=== PATIENT | female | born 1990 | race Caucasian/White ===

== ENCOUNTER 2017-01-19 21:58 | Inpatient (IN) | payer OTHER ==
[2017-01-19] MEDS ORDERED: Oxytocin/Lactated Ringers 10 UNIT/1,000 ML BAG IV SCH ×2 (23:45)
[2017-01-19] MEDS ORDERED: Sodium Chloride 0.9% 10 ML Syringe FLUSH PRN (23:46)
[2017-01-19] MEDS ORDERED: Nalbuphine 20 MG/1 ML Amp IVPUSH PRN (23:46)
[2017-01-19] MEDS ORDERED: Lidocaine 1% 50 ML MDV INJECT ONE (23:46)
[2017-01-20] MEDS: Lactated Ringers 1,000 ML IV SCH ×6 (02:27→19:15)
[2017-01-20] MEDS ORDERED: Flu Vaccine 2016-17(36Mos+)/PF 60 MCG/0.5 ML Syringe IM ONE (08:32)
[2017-01-20] MEDS ORDERED: Pneumococcal Polyvalent-23 Vaccine 0.5 ML SDV IM ONE (08:32)
[2017-01-20] MEDS ORDERED: diphenhydrAMINE 50 MG/ML SDV IVPUSH PRN (09:32)
[2017-01-20] MEDS ORDERED: fentaNYL 100 MCG/2 ML SDV EPIDUR PRN (09:32)
[2017-01-20] MEDS ORDERED: ePHEDrine 50 MG/ML SDV IVPUSH PRN (09:32)
[2017-01-20] MEDS: Bupivacaine/fentaNYL/NS 100 ML Bag EPIDUR SCH ×2 (10:11→18:41)
--- NOTE | 2017-01-20 10:24 | PCM.PREANE ---
Preanesthetic Assessment - Anesthesia/Transfusion/Family Hx Anesthesia History: Prior Anesthesia Without Reaction Family History of Anesthesia Reaction: No Transfusion History: No Prior Transfusion(s) - Review of Systems General: No Symptoms Pulmonary: No Symptoms Cardiovascular: No Symptoms 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: No symptoms Neurological: No Symptoms Other: Reports: None - Physical Assessment Pulse: 90 O2 Sat by Pulse Oximetry: 96 Respiratory Rate: 18 Blood Pressure: 140/97 Temperature: 37.0 C Vital Signs: Last Vital Signs Temp 37.0 C 01/19/17 23:46 Pulse 90 01/19/17 23:46 Resp 18 01/19/17 23:46 BP 140/97 H 01/19/17 23:46 Pulse Ox 96 01/19/17 23:46 Height: 1.63 m Weight: 80.739 kg ASA Class: 2 Mental Status: Alert & Oriented x3 Airway Class: Mallampati = 1 Dentition: Reports: Normal Dentition Thyro-Mental Finger Breadths: 3 Mouth Opening Finger Breadths: 3 ROM/Head Extension: Full Lungs: Clear to auscultation, Normal respiratory effort Cardiovascular: Regular Rate, Regular Rhythm - Lab Values: Laboratory Last Values WBC 12.18 K/mm3 (3.98-10.04) H 01/20/17 00:10 RBC 4.12 M/mm3 (3.98-5.22) 01/20/17 00:10 Hgb 11.8 gm/L (11.2-15.7) 01/20/17 00:10 Hct 34.6 % (34.1-44.9) 01/20/17 00:10 MCV 84.0 fl (79.4-94.8) 01/20/17 00:10 MCH 28.6 pg (25.6-32.2) 01/20/17 00:10 MCHC 34.1 g/dl (32.2-35.5) 01/20/17 00:10 RDW Std Deviation 44.0 fL (36.4-46.3) 01/20/17 00:10 Plt Count 257 K/mm3 (182-369) 01/20/17 00:10 MPV 10.0 fl (9.4-12.3) 01/20/17 00:10 Membrane Rupture Positive H 01/19/17 22:40 Blood Type A NEGATIVE 01/20/17 00:10 Gel Antibody Screen Positive 01/20/17 00:10 - Allergies Allergies/Adverse Reactions: Allergies Allergy/AdvReac Type Severity Reaction Status Date / Time No Known Allergies Allergy Verified 10/04/16 17:21 - Anesthesia Plan Pre-Op Medication Ordered: None - Acknowledgements Anesthesia Type Planned: Epidural Pt an Appropriate Candidate for the Planned Anesthesia: Yes Alternatives and Risks of Anesthesia Discussed w Pt/Guardian: Yes Pt/Guardian Understands and Agrees with Anesthesia Plan: Yes PreAnesthesia Questionnaire Respiratory History: Reports: Asthma Other Respiratory History: EXERCISE INDUCED, does not use inhaler, pt is ex smoker 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: Reports: GERD 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: Psychiatric History: Reports: Depression, Suicide attempt Other Psychiatric History: at age 16 pt states she tried to cut or scrape wrists - SUBSTANCE USE Smoking Status *Q: Former Smoker Tobacco Use Within Last Twelve Months: Cigarettes Second Hand Smoke Exposure: No Days Per Week of Alcohol Use: 1 Number of Drinks Per Day: 3 Total Drinks Per Week: 3 Recreational Drug Use History: Yes Recreational Drug Type: Reports: Ecstasy, Other (see below) - CURRENT (IN HOUSE) MEDS Current Meds: Current Medications Diphenhydramine HCl (Benadryl) 25 mg IVPUSH Q6H PRN PRN Reason: Itching Ephedrine Sulfate (Ephedrine Sulfate) 5 mg IVPUSH ASDIRECTED PRN PRN Reason: HYPOTENTSION Fentanyl (Sublimaze) 100 mcg EPIDUR Q3H PRN PRN Reason: PAIN Last Admin: 01/20/17 10:10 Dose: 100 mcg Fentanyl/Bupivacaine HCl (Fentanyl/Bupivacaine/Ns 2 Mcg-0.125% 100 Ml) 100 ml EPIDUR ASDIRECTED TYRONE Last Admin: 01/20/17 10:11 Dose: 100 ml Lactated Ringer's (Ringers, Lactated) 1,000 mls @ 100 mls/hr IV ASDIRECTED TYRONE Last Admin: 01/20/17 09:56 Dose: 100 mls/hr Oxytocin/Lactated Ringer's (Pitocin In Lr 10 Units/1,000 Ml) 10 unit in 1,000 mls @ 500 mls/hr IV ASDIRECTED TYRONE Oxytocin/Lactated Ringer's (Pitocin In Lr 10 Units/1,000 Ml) 10 unit in 1,000 mls @ 12 mls/hr IV TITRATE TYRONE; 2 MUNITS/MIN PRN Reason: Protocol Nalbuphine HCl (Nubain) 10 mg IVPUSH Q2H PRN PRN Reason: Pain (moderate 4-6) Sodium Chloride (Saline Flush) 10 ml FLUSH ASDIRECTED PRN PRN Reason: Keep Vein Open Discontinued Medications Influenza Virus Vaccine (Fluzone/Fluarix Vaccine) 60 mcg IM .ONCE ONE Stop: 01/20/17 08:33 Lidocaine HCl (Xylocaine 1%) 50 ml INJECT ONETIME ONE Stop: 01/19/17 23:47 Pneumococcal Polyvalent Vaccine (Pneumovax 23) 0.5 ml IM .ONCE ONE Stop: 01/20/17 08:33 Preanesthetic Assessment - PHYSICAL ASSESSMENT O2 Sat by Pulse Oximetry: 96 RR: 18 Vital Signs: Last Vital Signs Temp 37.0 C 01/19/17 23:46 Pulse 90 01/19/17 23:46 Resp 18 01/19/17 23:46 BP 140/97 H 01/19/17 23:46 Pulse Ox 96 01/19/17 23:46 Height: 1.63 m Weight: 80.739 kg - LAB Values: Laboratory Last Values WBC 12.18 K/mm3 (3.98-10.04) H 01/20/17 00:10 RBC 4.12 M/mm3 (3.98-5.22) 01/20/17 00:10 Hgb 11.8 gm/L (11.2-15.7) 01/20/17 00:10 Hct 34.6 % (34.1-44.9) 01/20/17 00:10 MCV 84.0 fl (79.4-94.8) 01/20/17 00:10 MCH 28.6 pg (25.6-32.2) 01/20/17 00:10 MCHC 34.1 g/dl (32.2-35.5) 01/20/17 00:10 RDW Std Deviation 44.0 fL (36.4-46.3) 01/20/17 00:10 Plt Count 257 K/mm3 (182-369) 01/20/17 00:10 MPV 10.0 fl (9.4-12.3) 01/20/17 00:10 Membrane Rupture Positive H 03/29/17 22:40 Blood Type A NEGATIVE 01/20/17 00:10 Gel Antibody Screen Positive 01/20/17 00:10 - ALLERGIES Allergies/Adverse Reactions: Allergies Allergy/AdvReac Type Severity Reaction Status Date / Time No Known Allergies Allergy Verified 10/04/16 17:21
[2017-01-20] MEDS ORDERED: Clindamycin Phosphate 600 MG in Sodium Chloride 0.9% 100 ML IV ONE (13:59)
[2017-01-20] MEDS: Acetaminophen 325 MG Tab PO PRN ×2 (15:20→20:56)
--- NOTE | 2017-01-20 22:20 | PCM.LDHP ---
L&D History of Present Illness - General Date of Service: 01/20/17 Admit Problem/Dx: Patient Status Order with Admit Dx/Problem 01/19/17 23:46 Patient Status [ADT] Routine 01/20/17 00:33 Patient Status [ADT] Routine Admission Diagnosis/Problem Admission Diagnosis/Problem Normal labor Source of Information: Patient History Limitations: Reports: No limitations - History of Present Illness Pain Score: 10 Improves with: Reports: None Worsens with: Reports: None Associated Symptoms: Reports: N - Related Data Allergies/Adverse Reactions: Allergies Allergy/AdvReac Type Severity Reaction Status Date / Time No Known Allergies Allergy Verified 10/04/16 17:21 Past Medical History Respiratory History: Reports: Asthma Other Respiratory History: EXERCISE INDUCED, does not use inhaler, pt is ex smoker 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: Reports: 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: Psychiatric History: Reports: Depression, Suicide attempt Other Psychiatric History: at age 16 pt states she tried to cut or scrape wrists Social & Family History - Family History Family Medical History: Noncontributory - Tobacco Use Smoking Status *Q: Former Smoker Years of Tobacco use: 10 Packs/Tins Daily: 5 Used Tobacco, but Quit: Yes Month Tobacco Last Used: 05/2016 Second Hand Smoke Exposure: No - Caffeine Use Caffeine Use: Reports: None - Alcohol Use Days Per Week of Alcohol Use: 1 Number of Drinks Per Day: 3 Total Drinks Per Week: 3 - Recreational Drug Use Recreational Drug Use: Yes Drug Use in Last 12 Months: No Recreational Drug Type: Reports: Ecstasy, Other (see below) Other Recreational Drug Type: states she did some drugs when she was 16, states she has bees to therepy H&P Review of Systems - Review of Systems: Review Of Systems: See Below General: Reports: no symptoms HEENT: Reports: no symptoms Pulmonary: Reports: No Symptoms Cardiovascular: Reports: no symptoms 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: Reports: No symptoms Genitourinary: Reports: no symptoms Musculoskeletal: Reports: no symptoms Skin: Reports: no symptoms Psychiatric: Reports: no symptoms Neurological: Reports: No Symptoms Hematologic/Lymphatic: Reports: no symptoms Immunologic: Reports: no symptoms L&D Exam - Exam Exam: See Below - Vital Signs Vital Signs: Last Vital Signs Temp 38.1 C 01/20/17 20:56 Pulse 90 01/20/17 10:24 Resp 18 01/20/17 10:24 BP 140/97 H 01/20/17 10:24 Pulse Ox 96 01/20/17 10:24 Weight: 80.739 kg - OB Specific Contraction Intensity: Mild to Moderate movement: active heart tones: present Heart Rate (FHR) Variability: Moderate (6-25 bmp) Presentation: Vertex - Boudreaux Score Boudreaux Score Cervix Position: Midposition Boudreaux Score Consistency: Soft Boudreaux Score Effacement: 31-50% Boudreaux Score Dilation: 1-2 cm Boudreaux Score 's Station: -2 Boudreaux Score Total: 6 - Exam General: alert HEENT: Conjunctiva clear Neck: supple Lungs: Clear to auscultation Cardiovascular: regular rate Abdomen: soft Genitourinary: Normal external exam Back Exam: normal inspection, full range of motion Extremities: normal inspection Skin: warm, dry Neurological: cranial nerves intact Psychiatric: alert, normal affect, normal mood - Patient Data Lab Results last 24 hrs: Laboratory Results - last 24 hr 01/19/17 01/20/17 01/20/17 Range/Units 22:40 00:10 00:10 WBC 12.18 H (3.98-10.04) K/mm3 RBC 4.12 (3.98-5.22) M/mm3 Hgb 11.8 (11.2-15.7) gm/L Hct 34.6 (34.1-44.9) % MCV 84.0 (79.4-94.8) fl MCH 28.6 (25.6-32.2) pg MCHC 34.1 (32.2-35.5) g/dl RDW Std Deviation 44.0 (36.4-46.3) fL Plt Count 257 (182-369) K/mm3 MPV 10.0 (9.4-12.3) fl Membrane Rupture Positive H Blood Type A NEGATIVE Gel Antibody Screen Positive Result Diagrams: 01/20/17 00:10 Problem List Initiated/Reviewed/Updated: Yes Orders Last 24hrs: Active Orders 24 hr Category Date Time Status Patient Status [ADT] Routine ADT 01/20/17 00:33 Active Activity as Tolerated [RC] PFP Care 01/19/17 23:46 Active Communication Order [RC] ASDIRECTED Care 01/19/17 23:46 Active Communication Order [RC] ASDIRECTED Care 01/20/17 09:28 Active Communication Order [RC] ASDIRECTED Care 01/20/17 09:32 Active Cooling Warming Measures [RC] ASDIRECTED Care 01/20/17 09:32 Active Notify Provider [RC] ASDIRECTED Care 01/20/17 09:32 Active Notify Provider [RC] PFP Care 01/19/17 23:46 Active Notify Provider [RC] PRN Care 01/19/17 23:46 Active Oxygen Therapy [RC] ASDIRECTED Care 01/20/17 09:32 Active Peripheral IV Care [RC] . DIRECTED Care 01/19/17 23:46 Active Pulse Oximetry [RC] ASDIRECTED Care 01/20/17 09:32 Active Verify Patient Consent Obtain [RC] ASDIRECTED Care 01/20/17 09:32 Active Vital Signs [RC] Care 01/20/17 09:32 Active Vital Signs [RC] PER UNIT ROUTINE Care 01/19/17 23:46 Active Regular Diet [DIET] Diet 01/20/17 Breakfast Active ANTIBODY IDENTIFICATION [BBK] Stat Lab 01/20/17 00:10 Results TYPE AND SCREEN [BBK] Stat Lab 01/19/17 23:46 Results Acetaminophen [Tylenol] Med 01/20/17 15:14 Active 650 mg PO Q4H PRN Bupivacaine/fentaNYL/NS [fentaNYL/Bupivacaine/NS 2 MCG- Med 01/20/17 09:45 Active 0.125% 100 ML] 100 ml EPIDUR ASDIRECTED Lactated Ringers [Ringers, Lactated] 1,000 ml Med 01/19/17 23:45 Active IV ASDIRECTED Nalbuphine [Nubain] Med 01/19/17 23:46 Active 10 mg IVPUSH Q2H PRN Oxytocin/Lactated Ringers [Pitocin in LR 10 Units/1,000 Med 01/19/17 23:45 Active ML] 10 unit in 1,000 ml IV ASDIRECTED Oxytocin/Lactated Ringers [Pitocin in LR 10 Units/1,000 Med 01/19/17 23:45 Active ML] 10 unit in 1,000 ml IV TITRATE Sodium Chloride 0.9% [Saline Flush] Med 01/19/17 23:46 Active 10 ml FLUSH ASDIRECTED PRN diphenhydrAMINE [Benadryl] Med 01/20/17 09:32 Active 25 mg IVPUSH Q6H PRN ePHEDrine [ePHEDrine Sulfate] Med 01/20/17 09:32 Active 5 mg IVPUSH ASDIRECTED PRN fentaNYL [Sublimaze] Med 01/20/17 09:32 Active 100 mcg EPIDUR Q3H PRN Electronic Heart Tones Ext w TOCO [WOMSER] Oth 01/19/17 23:46 Ordered Routine Electronic Heart Tones Internal [WOMSER] Per Unit Oth 01/19/17 23:46 Ordered Routine Peripheral IV Insertion Adult [OM.PC] Routine Oth 01/19/17 23:46 Ordered Resuscitation Status Routine Resus Stat 01/19/17 23:46 Ordered Medication Orders Acetaminophen (Tylenol) 650 mg PO Q4H PRN PRN Reason: temp, pain Last Admin: 01/20/17 20:56 Dose: 650 mg Admin: 01/20/17 15:20 Dose: 650 mg Diphenhydramine HCl (Benadryl) 25 mg IVPUSH Q6H PRN PRN Reason: Itching Ephedrine Sulfate (Ephedrine Sulfate) 5 mg IVPUSH ASDIRECTED PRN PRN Reason: HYPOTENTSION Fentanyl (Sublimaze) 100 mcg EPIDUR Q3H PRN PRN Reason: PAIN Last Admin: 01/20/17 10:10 Dose: 100 mcg Fentanyl/Bupivacaine HCl (Fentanyl/Bupivacaine/Ns 2 Mcg-0.125% 100 Ml) 100 ml EPIDUR ASDIRECTED [facility] Last Admin: 01/20/17 18:41 Dose: 100 ml Admin: 01/20/17 10:11 Dose: 100 ml Lactated Ringer's (Ringers, Lactated) 1,000 mls @ 100 mls/hr IV ASDIRECTED [facility] Last Admin: 01/20/17 19:15 Dose: 100 mls/hr Infusion: 01/20/17 19:15 Dose: 100 mls/hr Admin: 01/20/17 13:46 Dose: 100 mls/hr Infusion: 01/20/17 13:46 Dose: 100 mls/hr Admin: 01/20/17 10:55 Dose: 100 mls/hr Infusion: 01/20/17 10:55 Dose: 100 mls/hr Admin: 01/20/17 09:56 Dose: 100 mls/hr Infusion: 01/20/17 09:56 Dose: 100 mls/hr Admin: 01/20/17 02:28 Dose: 100 mls/hr Infusion: 01/20/17 02:28 Dose: 100 mls/hr Admin: 01/20/17 02:27 Dose: 100 mls/hr Oxytocin/Lactated Ringer's (Pitocin In Lr 10 Units/1,000 Ml) 10 unit in 1,000 mls @ 500 mls/hr IV ASDIRECTED TYRONE Oxytocin/Lactated Ringer's (Pitocin In Lr 10 Units/1,000 Ml) 10 unit in 1,000 mls @ 12 mls/hr IV TITRATE TYRONE; 2 MUNITS/MIN PRN Reason: Protocol Last Titration: 01/20/17 13:32 Dose: 6 munits/min, 36 mls/hr Titration: 01/20/17 12:28 Dose: 5 munits/min, 30 mls/hr Titration: 01/20/17 11:29 Dose: 4 munits/min, 24 mls/hr Titration: 01/20/17 10:56 Dose: 3 munits/min, 18 mls/hr Admin: 01/20/17 10:33 Dose: 2 munits/min, 12 mls/hr Nalbuphine HCl (Nubain) 10 mg IVPUSH Q2H PRN PRN Reason: Pain (moderate 4-6) Sodium Chloride (Saline Flush) 10 ml FLUSH ASDIRECTED PRN PRN Reason: Keep Vein Open Assessment/Plan Comment:: SROM clear fluid. Pitocin if needed. Anticipate .
[2017-01-20] MEDS ORDERED: ePHEDrine 50 MG/ML SDV ONE (22:22)
[2017-01-20] MEDS ORDERED: Bupivacaine 0.25% 10 ML SDV ONE (22:22)
--- NOTE | 2017-01-20 22:22 | PCM.PNLD ---
Labor Progress Note - VS & Meds Vital Signs: Last Vital Signs Temp 38.1 C 01/20/17 20:56 Pulse 90 01/20/17 10:24 Resp 18 01/20/17 10:24 BP 140/97 H 01/20/17 10:24 Pulse Ox 96 01/20/17 10:24 Active Medications: Current Medications Acetaminophen (Tylenol) 650 mg PO Q4H PRN PRN Reason: temp, pain Last Admin: 01/20/17 20:56 Dose: 650 mg Diphenhydramine HCl (Benadryl) 25 mg IVPUSH Q6H PRN PRN Reason: Itching Ephedrine Sulfate (Ephedrine Sulfate) 5 mg IVPUSH ASDIRECTED PRN PRN Reason: HYPOTENTSION Fentanyl (Sublimaze) 100 mcg EPIDUR Q3H PRN PRN Reason: PAIN Last Admin: 01/20/17 10:10 Dose: 100 mcg Fentanyl/Bupivacaine HCl (Fentanyl/Bupivacaine/Ns 2 Mcg-0.125% 100 Ml) 100 ml EPIDUR ASDIRECTED TYRONE Last Admin: 01/20/17 18:41 Dose: 100 ml Lactated Ringer's (Ringers, Lactated) 1,000 mls @ 100 mls/hr IV ASDIRECTED TYRONE Last Admin: 01/20/17 19:15 Dose: 100 mls/hr Oxytocin/Lactated Ringer's (Pitocin In Lr 10 Units/1,000 Ml) 10 unit in 1,000 mls @ 500 mls/hr IV ASDIRECTED TYRONE Oxytocin/Lactated Ringer's (Pitocin In Lr 10 Units/1,000 Ml) 10 unit in 1,000 mls @ 12 mls/hr IV TITRATE TYRONE; 2 MUNITS/MIN PRN Reason: Protocol Last Titration: 01/20/17 13:32 Dose: 6 munits/min, 36 mls/hr Nalbuphine HCl (Nubain) 10 mg IVPUSH Q2H PRN PRN Reason: Pain (moderate 4-6) Sodium Chloride (Saline Flush) 10 ml FLUSH ASDIRECTED PRN PRN Reason: Keep Vein Open Discontinued Medications Gentamicin Sulfate 120 mg/ (Sodium Chloride) 103 mls @ 200 mls/hr IV ONETIME ONE Stop: 01/20/17 14:28 Last Admin: 01/20/17 15:05 Dose: 200 mls/hr Clindamycin Phosphate 600 mg/ (Sodium Chloride) 104 mls @ 100 mls/hr IV ONETIME ONE Stop: 01/20/17 15:01 Last Admin: 01/20/17 14:12 Dose: 100 mls/hr Influenza Virus Vaccine (Fluzone/Fluarix Vaccine) 60 mcg IM .ONCE ONE Stop: 01/20/17 08:33 Lidocaine HCl (Xylocaine 1%) 50 ml INJECT ONETIME ONE Stop: 01/19/17 23:47 Pneumococcal Polyvalent Vaccine (Pneumovax 23) 0.5 ml IM .ONCE ONE Stop: 01/20/17 08:33 - Uterine Contractions Contraction Intensity: Mild to Moderate Uterine Resting Tone: Hard - Monitoring Heart Rate (FHR) Variability: Moderate (6-25 bmp) Accelerations: Present, 15x15 - Vaginal Exam Station: -3 - Labor Progress (Free Text) Labor Progress: Good progress. Anticipate .
[2017-01-20] MEDS ORDERED: Acetaminophen 325 MG Tab PO PRN (23:31)
[2017-01-20] MEDS ORDERED: Lanolin 100% Cream 7 GM Tube TOP PRN (23:31)
[2017-01-20] MEDS ORDERED: Benzocaine/Menthol 20%-0.5% Spray 56 GM Canister TOP PRN (23:31)
[2017-01-20] MEDS ORDERED: Docusate Sodium 100 MG Cap PO PRN (23:31)
[2017-01-20] MEDS ORDERED: Witch Hazel Medicated Pads 100/Jar TOP PRN (23:31)
[2017-01-20] MEDS: Ibuprofen 600 MG Tab PO PRN (23:50)
--- NOTE | 2017-01-21 07:47 | PCM48HPAN ---
Post Anesthesia Note - EVALUATION WITHIN 48HRS OF ANESTHETIC Vital Signs in Normal Range: Yes Patient Participated in Evaluation: Yes Respiratory Function Stable: Yes Airway Patent: Yes Cardiovascular Function Stable: Yes Hydration Status Stable: Yes Pain Control Satisfactory: Yes Nausea and Vomiting Control Satisfactory: Yes Mental Status Recovered: Yes
[2017-01-21] MEDS: Ibuprofen 600 MG Tab PO PRN ×2 (08:52→16:36)
--- NOTE | 2017-01-21 10:10 | PCM.PNPP ---
- General Info Date of Service: 01/21/17 Subjective Update: S/P . Doing great. No issues. Minimal pain. Nursing well. Functional Status: Reports: pain controlled - Review of Systems General: Reports: No Symptoms HEENT: Reports: no symptoms Pulmonary: Reports: no symptoms Cardiovascular: Reports: No Symptoms 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: Reports: No symptoms Genitourinary: Reports: no symptoms Musculoskeletal: Reports: no symptoms Skin: Reports: no symptoms Neurological: Reports: No Symptoms Psychiatric: Reports: no symptoms - General Info Date of Service: 01/21/17 - Patient Data Vital Signs - most recent: Last Vital Signs Temp 36.1 C 01/21/17 04:15 Pulse 79 01/21/17 04:15 Resp 16 01/21/17 04:15 BP 114/78 01/21/17 04:15 Pulse Ox 97 01/21/17 04:15 Weight - most recent: 80.739 kg I&O - last 24 hours: Intake & Output 01/20/17 01/21/17 01/21/17 22:59 06:59 14:59 Output Total 300 Balance -300 Lab Results - last 24 hrs: Laboratory Results - last 24 hr 01/21/17 Range/Units 07:28 Blood Type A NEGATIVE Gel Antibody Screen Positive Screen 0 ros/5 flds - neg RhIG Candidate? Yes Rhogam Indicated Yes, baby rh pos H Med Orders - Current: Current Medications Acetaminophen (Tylenol) 650 mg PO Q4H PRN PRN Reason: mild pain or fever Benzocaine/Menthol (Dermoplast Pain Relief Peak) 0 gm TOP ASDIRECTED PRN PRN Reason: Perineal Comfort Measure Last Admin: 01/21/17 00:48 Dose: 1 can Docusate Sodium (Colace) 100 mg PO BID PRN PRN Reason: Constipation Emollient Ointment (Lansinoh Hpa) 0 gm TOP ASDIRECTED PRN PRN Reason: Sore Nipples Ibuprofen (Motrin) 600 mg PO Q6H PRN PRN Reason: Mild pain or fever Last Admin: 01/21/17 08:52 Dose: 600 mg Witch Pamela (Tucks) 1 pad TOP ASDIRECTED PRN PRN Reason: Hemorrhoid pain Last Admin: 01/21/17 00:48 Dose: 1 tub Discontinued Medications Acetaminophen (Tylenol) 650 mg PO Q4H PRN PRN Reason: temp, pain Last Admin: 01/20/17 20:56 Dose: 650 mg Diphenhydramine HCl (Benadryl) 25 mg IVPUSH Q6H PRN PRN Reason: Itching Ephedrine Sulfate (Ephedrine Sulfate) 5 mg IVPUSH ASDIRECTED PRN PRN Reason: HYPOTENTSION Fentanyl (Sublimaze) 100 mcg EPIDUR Q3H PRN PRN Reason: PAIN Last Admin: 01/20/17 10:10 Dose: 100 mcg Fentanyl/Bupivacaine HCl (Fentanyl/Bupivacaine/Ns 2 Mcg-0.125% 100 Ml) 100 ml EPIDUR ASDIRECTED TYRONE Last Admin: 01/20/17 18:41 Dose: 100 ml Lactated Ringer's (Ringers, Lactated) 1,000 mls @ 100 mls/hr IV ASDIRECTED TYRONE Last Admin: 01/20/17 19:15 Dose: 100 mls/hr Oxytocin/Lactated Ringer's (Pitocin In Lr 10 Units/1,000 Ml) 10 unit in 1,000 mls @ 500 mls/hr IV ASDIRECTED TYRONE Oxytocin/Lactated Ringer's (Pitocin In Lr 10 Units/1,000 Ml) 10 unit in 1,000 mls @ 12 mls/hr IV TITRATE TYRONE; 2 MUNITS/MIN PRN Reason: Protocol Last Titration: 01/20/17 13:32 Dose: 6 munits/min, 36 mls/hr Gentamicin Sulfate 120 mg/ (Sodium Chloride) 103 mls @ 200 mls/hr IV ONETIME ONE Stop: 01/20/17 14:28 Last Admin: 01/20/17 15:05 Dose: 200 mls/hr Clindamycin Phosphate 600 mg/ (Sodium Chloride) 104 mls @ 100 mls/hr IV ONETIME ONE Stop: 01/20/17 15:01 Last Admin: 01/20/17 14:12 Dose: 100 mls/hr Influenza Virus Vaccine (Fluzone/Fluarix Vaccine) 60 mcg IM .ONCE ONE Stop: 01/20/17 08:33 Last Admin: 01/21/17 07:35 Dose: Not Given Lidocaine HCl (Xylocaine 1%) 50 ml INJECT ONETIME ONE Stop: 01/19/17 23:47 Last Admin: 01/21/17 02:01 Dose: Not Given Nalbuphine HCl (Nubain) 10 mg IVPUSH Q2H PRN PRN Reason: Pain (moderate 4-6) Pneumococcal Polyvalent Vaccine (Pneumovax 23) 0.5 ml IM .ONCE ONE Stop: 01/20/17 08:33 Last Admin: 01/21/17 07:36 Dose: Not Given Sodium Chloride (Saline Flush) 10 ml FLUSH ASDIRECTED PRN PRN Reason: Keep Vein Open - Infant Interaction Infant Disposition, : at Bedside Support Person: Significant Other - Recovery Exam Fundal Tone: Firm Fundal Level: At Umbilicus Fundal Placement: Midline Lochia Amount: Small Lochia Color: Rubra/Red Perineum Description: Other (see below) Other Perinuem Description: 2nd degree w/ repair, using tucks and dermoplast Episiotomy/Laceration: Approximated Bladder Status: Voiding Urinary Elimination: Voided - Exam General: alert, oriented HEENT: Pupils equal Neck: supple Lungs: Clear to auscultation, Normal respiratory effort Cardiovascular: Regular Rate, Regular Rhythm Abdomen: bowel sounds present, soft, no tenderness, no distension Extremities: no edema Skin: warm, dry, intact Neurological: no new focal deficit Psy/Mental Status: alert, normal affect, normal mood - Problem List Review Problem List Initiated/Reviewed/Updated: Yes - My Orders Last 24 Hours: My Active Orders 01/20/17 09:28 Communication Order [RC] ASDIRECTED 01/20/17 23:31 Activity as Tolerated [RC] PER UNIT ROUTINE Vital Signs [RC] 04,12,20 Acetaminophen [Tylenol] 650 mg PO Q4H PRN Benzocaine/Menthol [Dermoplast Pain Relief Peak] See Dose Instructions TOP ASDIRECTED PRN Docusate Sodium [Colace] 100 mg PO BID PRN Ibuprofen [Motrin] 600 mg PO Q6H PRN Lanolin [Lansinoh HPA] See Dose Instructions TOP ASDIRECTED PRN Witch Pamela [Tucks] 1 pad TOP ASDIRECTED PRN Assess Lochia [WOMSER] Per Unit Routine Assess Uterine Involution [WOMSER] Per Unit Routine Breast Pump [WOMSER] Per Unit Routine Heat Therapy [OM.PC] PRN Medication Administration Instruction [OM.PC] Routine Perineal Care [OM.PC] Per Unit Routine Sitz Bath [OM.PC] Per Unit Routine 01/21/17 08:09 RH IMMUNE GLOBULIN [BBK] Routine 01/21/17 23:31 Heat Therapy [OM.PC] PRN - Assessment Assessment:: PPD1 Doing great - Plan Plan:: Routine cares HOme tomorrow
--- NOTE | 2017-01-22 06:55 | PCM.DCSUM1 ---
Discharge Summary - Hospital Course Brief History: Admitted with SROM, Augmented, . - Discharge Data Discharge Date: 01/22/17 Discharge Disposition: Home, Self-Care 01 Condition: Good - Patient Summary/Data Hospital Course: Unremarkable labor, delivery and course. - Patient Instructions Diet: Heart Healthy Diet Activity: No Strenuous Activities Driving: May Drive Today Showering/Bathing: May Shower Notify Provider of: Fever, Increased Pain, Swelling and Redness, Drainage, Nausea and/or Vomiting - Discharge Plan Patient Handouts: Smoking Cessation, Tips for Success, With-ey-Ilbh, Smoking Hazards Referrals: Elissa Jimenez MD [Primary Care Provider] - - Discharge Summary/Plan Comment DC Time >30 min.: No - Patient Data Vitals - Most Recent: Last Vital Signs Temp 36.7 C 01/22/17 03:33 Pulse 65 01/22/17 03:33 Resp 16 01/22/17 03:33 BP 129/98 H 01/22/17 03:33 Pulse Ox 99 01/22/17 03:33 Weight - Most Recent: 80.739 kg I&O - Last 24 hours: Intake & Output 01/21/17 01/21/17 01/22/17 14:59 22:59 06:59 Intake Total 2 Balance 2 Lab Results - Last 24 hrs: Laboratory Results - last 24 hr 01/21/17 Range/Units 07:28 Blood Type A NEGATIVE Gel Antibody Screen Positive Screen 0 ros/5 flds - neg RhIG Candidate? Yes Rhogam Indicated Yes, baby rh pos H Med Orders - Current: Current Medications Acetaminophen (Tylenol) 650 mg PO Q4H PRN PRN Reason: mild pain or fever Last Admin: 01/21/17 11:29 Dose: 650 mg Benzocaine/Menthol (Dermoplast Pain Relief [place]) 0 gm TOP ASDIRECTED PRN PRN Reason: Perineal Comfort Measure Last Admin: 01/21/17 00:48 Dose: 1 can Docusate Sodium (Colace) 100 mg PO BID PRN PRN Reason: Constipation Emollient Ointment (Lansinoh Hpa) 0 gm TOP ASDIRECTED PRN PRN Reason: Sore Nipples Ibuprofen (Motrin) 600 mg PO Q6H PRN PRN Reason: Mild pain or fever Last Admin: 01/21/17 16:36 Dose: 600 mg Witch Pamela (Tucks) 1 pad TOP ASDIRECTED PRN PRN Reason: Hemorrhoid pain Last Admin: 01/21/17 00:48 Dose: 1 tub Discontinued Medications Acetaminophen (Tylenol) 650 mg PO Q4H PRN PRN Reason: temp, pain Last Admin: 01/20/17 20:56 Dose: 650 mg Diphenhydramine HCl (Benadryl) 25 mg IVPUSH Q6H PRN PRN Reason: Itching Ephedrine Sulfate (Ephedrine Sulfate) 5 mg IVPUSH ASDIRECTED PRN PRN Reason: HYPOTENTSION Fentanyl (Sublimaze) 100 mcg EPIDUR Q3H PRN PRN Reason: PAIN Last Admin: 01/20/17 10:10 Dose: 100 mcg Fentanyl/Bupivacaine HCl (Fentanyl/Bupivacaine/Ns 2 Mcg-0.125% 100 Ml) 100 ml EPIDUR ASDIRECTED TYRONE Last Admin: 01/20/17 18:41 Dose: 100 ml Lactated Ringer's (Ringers, Lactated) 1,000 mls @ 100 mls/hr IV ASDIRECTED TYRONE Last Admin: 01/20/17 19:15 Dose: 100 mls/hr Oxytocin/Lactated Ringer's (Pitocin In Lr 10 Units/1,000 Ml) 10 unit in 1,000 mls @ 500 mls/hr IV ASDIRECTED TYRONE Oxytocin/Lactated Ringer's (Pitocin In Lr 10 Units/1,000 Ml) 10 unit in 1,000 mls @ 12 mls/hr IV TITRATE TYRONE; 2 MUNITS/MIN PRN Reason: Protocol Last Titration: 01/20/17 13:32 Dose: 6 munits/min, 36 mls/hr Gentamicin Sulfate 120 mg/ (Sodium Chloride) 103 mls @ 200 mls/hr IV ONETIME ONE Stop: 01/20/17 14:28 Last Admin: 01/20/17 15:05 Dose: 200 mls/hr Clindamycin Phosphate 600 mg/ (Sodium Chloride) 104 mls @ 100 mls/hr IV ONETIME ONE Stop: 01/20/17 15:01 Last Admin: 01/20/17 14:12 Dose: 100 mls/hr Influenza Virus Vaccine (Fluzone/Fluarix Vaccine) 60 mcg IM .ONCE ONE Stop: 01/20/17 08:33 Last Admin: 01/21/17 07:35 Dose: Not Given Lidocaine HCl (Xylocaine 1%) 50 ml INJECT ONETIME ONE Stop: 01/19/17 23:47 Last Admin: 01/21/17 02:01 Dose: Not Given Nalbuphine HCl (Nubain) 10 mg IVPUSH Q2H PRN PRN Reason: Pain (moderate 4-6) Pneumococcal Polyvalent Vaccine (Pneumovax 23) 0.5 ml IM .ONCE ONE Stop: 01/20/17 08:33 Last Admin: 01/21/17 07:36 Dose: Not Given Sodium Chloride (Saline Flush) 10 ml FLUSH ASDIRECTED PRN PRN Reason: Keep Vein Open *Q Meaningful Use (DIS) - VTE *Q VTE Criteria *Q: - Stroke *Q Stroke Criteria *Q: - AMI *Q AMI Criteria *Q:
[2017-01-22] MEDS: Ibuprofen 600 MG Tab PO PRN (11:32)
[2017-01-22 13:26] VITALS: BP 137/90
== END 2017-01-22 13:45 | disposition home or self-care (01) | DRG 775 ==
LOC: JD.OB 21:58 → OBSVTOIN 23:46 → INTOOBSV 23:46 → OBSVTOIN 01-20 21:58 → JD.OB 01-20 21:58
PROVIDERS: ADMIT Obstetrics & Gynecology; ATTEND Obstetrics & Gynecology
PROC: 10E0XZZ Delivery of Products of Conception, External Approach (ICD-10-PCS; principal; 2017-01-20)
PROC: 0KQM0ZZ Repair Perineum Muscle, Open Approach (ICD-10-PCS; 2017-01-20)
PROC: 00HU33Z Insertion of Infusion Device into Spinal Canal, Percutaneous Approach (ICD-10-PCS; 2017-01-20)
PROC: 3E0R3CZ (ICD-10-PCS; 2017-01-20)
DX: O42.92 Full-term premature rupture of membranes, unspecified as to length of time between rupture and onset of labor (principal); O70.1 Second degree perineal laceration during delivery; Z3A.38 38 weeks gestation of pregnancy; Z37.0 Single live birth
CPT/HCPCS: 01967; 36415; 84112; 85027; 85461; 86850; 86870; 86900; 86901; A9270-GY; J1580; J2590; J2790; J3010; J7030; J7120

== ENCOUNTER 2019-01-18 12:10 | Inpatient (IN) | payer OTHER ==
[2019-01-18] MEDS ORDERED: Nalbuphine 20 MG/ML 1 ML Syringe IVPUSH PRN (12:36)
[2019-01-18] MEDS ORDERED: Sodium Chloride 0.9% 10 ML Syringe FLUSH PRN (12:36)
[2019-01-18] MEDS ORDERED: Lactated Ringers 1,000 ML ONE (12:41)
[2019-01-18] MEDS ORDERED: Oxytocin/Lactated Ringers 10 UNIT/1,000 ML BAG IV ONE (12:41)
[2019-01-18] MEDS: Lactated Ringers 1,000 ML IV SCH ×3 (12:43→19:26)
[2019-01-18] MEDS ORDERED: Oxytocin/Lactated Ringers 10 UNIT/1,000 ML BAG IV SCH ×2 (12:45)
[2019-01-18] MEDS ORDERED: Bupivacaine 0.25% 10 ML SDV ONE (16:00)
[2019-01-18] MEDS ORDERED: diphenhydrAMINE 50 MG/ML SDV IVPUSH PRN (18:35)
[2019-01-18] MEDS ORDERED: ePHEDrine 50 MG/ML SDV IVPUSH PRN (18:35)
[2019-01-18] MEDS ORDERED: fentaNYL 100 MCG/2 ML SDV EPIDUR PRN (18:35)
[2019-01-18] MEDS ORDERED: fentaNYL/Bupivacaine-NS 2 MCG/ML-0.125%/PF 100 ML Bag EPIDUR SCH (18:45)
--- NOTE | 2019-01-18 19:09 | PCM.PREANE ---
Preanesthetic Assessment - Anesthesia/Transfusion/Family Hx Anesthesia History: Prior Anesthesia Without Reaction Family History of Anesthesia Reaction: No Transfusion History: No Prior Transfusion(s) - Review of Systems General: No Symptoms Pulmonary: No Symptoms Cardiovascular: No Symptoms 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: Abdominal Pain (labor contractions) Neurological: No Symptoms Other: Reports: None - Physical Assessment Pulse: 100 O2 Sat by Pulse Oximetry: 97 Respiratory Rate: 16 Blood Pressure: 123/80 Temperature: 36.4 C Vital Signs: Last Vital Signs Temp 36.4 C 01/18/19 12:36 Pulse 100 01/18/19 12:36 Resp 16 01/18/19 12:36 BP 123/80 01/18/19 12:36 Pulse Ox Height: 1.63 m Weight: 83.915 kg ASA Class: 2 Mental Status: Alert & Oriented x3 Airway Class: Mallampati = 1 Dentition: Reports: Normal Dentition Thyro-Mental Finger Breadths: 3 Mouth Opening Finger Breadths: 3 ROM/Head Extension: Full Lungs: Clear to Auscultation, Normal Respiratory Effort Cardiovascular: Regular Rate, Regular Rhythm - Lab Values: Laboratory Last Values WBC 8.02 K/mm3 (3.98-10.04) 01/18/19 13:00 RBC 3.78 M/mm3 (3.98-5.22) L 01/18/19 13:00 Hgb 11.0 gm/L (11.2-15.7) L 01/18/19 13:00 Hct 31.7 % (34.1-44.9) L 01/18/19 13:00 MCV 83.9 fl (79.4-94.8) 01/18/19 13:00 MCH 29.1 pg (25.6-32.2) 01/18/19 13:00 MCHC 34.7 g/dl (32.2-35.5) 01/18/19 13:00 RDW Std Deviation 44.0 fL (36.4-46.3) 01/18/19 13:00 Plt Count 209 K/mm3 (182-369) 01/18/19 13:00 MPV 9.7 fl (9.4-12.3) 01/18/19 13:00 Neut % (Auto) 72.5 % (34.0-71.1) H 01/18/19 13:00 Lymph % (Auto) 19.5 % (19.3-51.7) 01/18/19 13:00 [place] % (Auto) 5.7 % (4.7-12.5) 01/18/19 13:00 Eos % (Auto) 1.6 (0.7-5.8) 01/18/19 13:00 Baso % (Auto) 0.1 % (0.1-1.2) 01/18/19 13:00 Neut # (Auto) 5.81 K/mm3 (1.56-6.13) 01/18/19 13:00 Lymph # (Auto) 1.56 K/mm3 (1.18-3.74) 01/18/19 13:00 [place] # (Auto) 0.46 K/mm3 (0.24-0.36) H 01/18/19 13:00 Eos # (Auto) 0.13 K/mm3 (0.04-0.36) 01/18/19 13:00 Baso # (Auto) 0.01 K/mm3 (0.01-0.08) 01/18/19 13:00 - Allergies Allergies/Adverse Reactions: Allergies Allergy/AdvReac Type Severity Reaction Status Date / Time No Known Allergies Allergy Verified 01/18/19 12:35 - Blood Blood Available: No Product(s) Available: None - Anesthesia Plan Pre-Op Medication Ordered: None - Acknowledgements Anesthesia Type Planned: Epidural Pt an Appropriate Candidate for the Planned Anesthesia: Yes Alternatives and Risks of Anesthesia Discussed w Pt/Guardian: Yes Pt/Guardian Understands and Agrees with Anesthesia Plan: Yes PreAnesthesia Questionnaire Respiratory History: Reports: Asthma Other Respiratory History: EXERCISE INDUCED, does not use inhaler, pt is ex smoker 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: Reports: GERD 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: Psychiatric History: Reports: Depression, Suicide Attempt Other Psychiatric History: at age 16 pt states she tried to cut or scrape wrists - SUBSTANCE USE Smoking Status *Q: Former Smoker Tobacco Use Within Last Twelve Months: Cigarettes Second Hand Smoke Exposure: No Recreational Drug Use History: No - HOME MEDS Home Medications: Home Meds Vits #93/Iron Fum/FA [ Formula Tablet] 1 each PO DAILY [History] - CURRENT (IN HOUSE) MEDS Current Meds: Current Medications Diphenhydramine HCl (Benadryl) 25 mg IVPUSH Q6H PRN PRN Reason: Itching Ephedrine Sulfate (Ephedrine Sulfate) 5 mg IVPUSH ASDIRECTED PRN PRN Reason: HYPOTENTSION Fentanyl (Sublimaze) 100 mcg EPIDUR Q3H PRN PRN Reason: Pain Last Admin: 01/18/19 19:03 Dose: 100 mcg Fentanyl/Bupivacaine HCl (Whrxwtgk-Rawfq-Fp 2 Mcg/Ml-0.125%) 100 ml EPIDUR ASDIRECTED TYRONE Last Admin: 01/18/19 19:03 Dose: 100 ml Lactated Ringer's (Ringers, Lactated) 1,000 mls @ 100 mls/hr IV ASDIRECTED TYRONE Last Admin: 01/18/19 18:36 Dose: 999 mls/hr Oxytocin/Lactated Ringer's (Pitocin In Lr 10 Units/1,000 Ml) 10 unit in 1,000 mls @ 12 mls/hr IV TITRATE TYRONE; Protocol Last Titration: 01/18/19 16:10 Dose: 16 munits/min, 96 mls/hr Oxytocin/Lactated Ringer's (Pitocin In Lr 10 Units/1,000 Ml) 10 unit in 1,000 mls @ 500 mls/hr IV .CONTINUOUS TYRONE Nalbuphine HCl (Nubain) 10 mg IVPUSH Q2H PRN PRN Reason: pain Sodium Chloride (Saline Flush) 10 ml FLUSH ASDIRECTED PRN PRN Reason: Keep Vein Open Discontinued Medications Lactated Ringer's (Ringers, Lactated) Confirm Administered Dose 1,000 mls @ as directed .ROUTE .STK-MED ONE Stop: 01/18/19 12:42 Last Admin: 01/18/19 13:03 Dose: Not Given Oxytocin/Lactated Ringer's (Pitocin In Lr 10 Units/1,000 Ml) Confirm Administered Dose 10 unit in 1,000 mls @ as directed IV .STK-MED ONE Stop: 01/18/19 12:42 Last Admin: 01/18/19 13:03 Dose: Not Given
--- NOTE | 2019-01-18 22:47 | PCM.LDHP ---
L&D History of Present Illness - General Date of Service: 01/18/19 Admit Problem/Dx: Patient Status Order with Admit Dx/Problem 01/18/19 12:15 Patient Status [ADT] Routine Admission Diagnosis/Problem Admission Diagnosis/Problem Source of Information: Patient - History of Present Illness Introduction:: 28 year old at 39w2d by LMP consistent with 2nd trimester ultrasound here for induction of labor. 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: Psychiatric History: Reports: Depression, Suicide Attempt Other Psychiatric History: at age 16 pt states she tried to cut or scrape wrists Social & Family History - Family History Family Medical History: Noncontributory - Tobacco Use Smoking Status *Q: Former Smoker Years of Tobacco use: 9 Packs/Tins Daily: 0.5 Used Tobacco, but Quit: Yes Month/Year Tobacco Last Used: 09/2016 Second Hand Smoke Exposure: No - Caffeine Use Caffeine Use: Reports: Coffee, Soda - Recreational Drug Use Recreational Drug Use: No H&P Review of Systems - Review of Systems: Review Of Systems: See Below General: Reports: No Symptoms HEENT: Reports: No Symptoms Pulmonary: Reports: No Symptoms Cardiovascular: Reports: No Symptoms 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: Reports: No Symptoms Genitourinary: Reports: No Symptoms Musculoskeletal: Reports: No Symptoms Skin: Reports: No Symptoms Psychiatric: Reports: No Symptoms Neurological: Reports: No Symptoms Hematologic/Lymphatic: Reports: No Symptoms Immunologic: Reports: No Symptoms L&D Exam - Exam Exam: See Below - Vital Signs Vital Signs: Last Vital Signs Temp 36.4 C 01/18/19 19:09 Pulse 100 01/18/19 19:09 Resp 16 01/18/19 19:09 BP 123/80 01/18/19 19:09 Pulse Ox 97 01/18/19 19:09 Weight: 83.915 kg - OB Specific Contraction Intensity: Moderate Movement: Active Heart Tones: Present Heart Rate (FHR) Variability: Moderate (6-25 bmp) Presentation: Vertex - Boudreaux Score Boudreaux Score Cervix Position: Midposition Boudreaux Score Consistency: Soft Boudreaux Score Effacement: 51-70% Boudreaux Score Dilation: 3-4 cm Boudreaux Score 's Station: -2 Boudreaux Score Total: 8 - Exam General: Alert, Oriented HEENT: PERRLA, Conjunctiva Clear, EACs Clear, EOMI, Hearing Intact, Mucosa Moist & [place], Nares Patent, Normal Nasal Septum, Posterior Pharynx Clear, TMs Clear Neck: Supple, Trachea Midline Lungs: Clear to Auscultation, Normal Respiratory Effort Cardiovascular: Regular Rate, Regular Rhythm GI/Abdominal Exam: Normal Bowel Sounds, Soft, Non-Tender, No Organomegaly, No Distention, No Abnormal Bruit, No Mass, Pelvis Stable Rectal Exam: Normal Exam, Normal Rectal Tone Back Exam: Normal Inspection, Full Range of Motion Extremities: Normal Inspection, Normal Range of Motion, Non-Tender, No Pedal Edema, Normal Capillary Refill Skin: Warm, Dry, Intact Neurological: Cranial Nerves Intact, Reflexes Equal Bilateral Psychiatric: Alert, Normal Affect, Normal Mood - Patient Data Lab Results Last 24 hrs: Laboratory Results - last 24 hr 01/18/19 Range/Units 13:00 WBC 8.02 (3.98-10.04) K/mm3 RBC 3.78 L (3.98-5.22) M/mm3 Hgb 11.0 L (11.2-15.7) gm/L Hct 31.7 L (34.1-44.9) % MCV 83.9 (79.4-94.8) fl MCH 29.1 (25.6-32.2) pg MCHC 34.7 (32.2-35.5) g/dl RDW Std Deviation 44.0 (36.4-46.3) fL Plt Count 209 (182-369) K/mm3 MPV 9.7 (9.4-12.3) fl Neut % (Auto) 72.5 H (34.0-71.1) % Lymph % (Auto) 19.5 (19.3-51.7) % [place] % (Auto) 5.7 (4.7-12.5) % Eos % (Auto) 1.6 (0.7-5.8) Baso % (Auto) 0.1 (0.1-1.2) % Neut # (Auto) 5.81 (1.56-6.13) K/mm3 Lymph # (Auto) 1.56 (1.18-3.74) K/mm3 [place] # (Auto) 0.46 H (0.24-0.36) K/mm3 Eos # (Auto) 0.13 (0.04-0.36) K/mm3 Baso # (Auto) 0.01 (0.01-0.08) K/mm3 Result Diagrams: 01/18/19 13:00 Problem List Initiated/Reviewed/Updated: Yes Orders Last 24hrs: Active Orders 24 hr Category Date Time Status Patient Status [ADT] Routine ADT 01/18/19 12:15 Active Activity as Tolerated [RC] PFP Care 01/18/19 12:36 Active Communication Order [RC] ASDIRECTED Care 01/18/19 12:36 Active Communication Order [RC] ASDIRECTED Care 01/18/19 18:35 Active Cooling Warming Measures [RC] ASDIRECTED Care 01/18/19 18:35 Active Heart Tones [RC] ASDIRECTED Care 01/18/19 12:36 Active Non Stress Test [RC] PER UNIT ROUTINE Care 01/18/19 12:36 Active Notify Provider [RC] ASDIRECTED Care 01/18/19 18:35 Active Notify Provider [RC] PFP Care 01/18/19 12:36 Active Notify Provider [RC] PRN Care 01/18/19 12:36 Active Oxygen Therapy [RC] ASDIRECTED Care 01/18/19 18:35 Active Peripheral IV Care [RC] . DIRECTED Care 01/18/19 12:36 Active Pulse Oximetry [RC] ASDIRECTED Care 01/18/19 18:35 Active Verify Patient Consent Obtain [RC] ASDIRECTED Care 01/18/19 18:35 Active Vital Signs [RC] ASDIRECTED Care 01/18/19 18:35 Active Vital Signs [RC] PER UNIT ROUTINE Care 01/18/19 12:36 Active Regular Diet [DIET] Diet 01/18/19 Dinner Active RAPID PLASMA REAGIN,RPR [CHEM] Routine Lab 01/18/19 13:00 Received Lactated Ringers [Ringers, Lactated] 1,000 ml Med 01/18/19 12:45 Active IV ASDIRECTED Nalbuphine [Nubain] Med 01/18/19 12:36 Active 10 mg IVPUSH Q2H PRN Oxytocin/Lactated Ringers [Pitocin in LR 10 Units/1,000 Med 01/18/19 12:45 Active ML] 10 unit in 1,000 ml IV .CONTINUOUS Oxytocin/Lactated Ringers [Pitocin in LR 10 Units/1,000 Med 01/18/19 12:45 Active ML] 10 unit in 1,000 ml IV TITRATE Sodium Chloride 0.9% [Saline Flush] Med 01/18/19 12:36 Active 10 ml FLUSH ASDIRECTED PRN diphenhydrAMINE [Benadryl] Med 01/18/19 18:35 Active 25 mg IVPUSH Q6H PRN ePHEDrine [ePHEDrine sulfate] Med 01/18/19 18:35 Active 5 mg IVPUSH ASDIRECTED PRN fentaNYL [Sublimaze] Med 01/18/19 18:35 Active 100 mcg EPIDUR Q3H PRN fentaNYL/Bupivacaine/NS/PF [bsyukNDM-Crgzk-QR 2 MCG/ML- Med 01/18/19 18:45 Active 0.125%] 100 ml EPIDUR ASDIRECTED Electronic Heart Tones Ext w TOCO [WOMSER] Oth 01/18/19 12:36 Ordered Routine Electronic Heart Tones Internal [WOMSER] Per Unit Oth 01/18/19 12:36 Ordered Routine Peripheral IV Insertion Adult [OM.PC] Routine Oth 01/18/19 12:36 Ordered Resuscitation Status Routine Resus Stat 01/18/19 12:36 Ordered Medication Orders Diphenhydramine HCl (Benadryl) 25 mg IVPUSH Q6H PRN PRN Reason: Itching Ephedrine Sulfate (Ephedrine Sulfate) 5 mg IVPUSH ASDIRECTED PRN PRN Reason: HYPOTENTSION Fentanyl (Sublimaze) 100 mcg EPIDUR Q3H PRN PRN Reason: Pain Last Admin: 01/18/19 19:03 Dose: 100 mcg Fentanyl/Bupivacaine HCl (Lzzvyvvu-Qcylj-Dq 2 Mcg/Ml-0.125%) 100 ml EPIDUR ASDIRECTED TYRONE Last Admin: 01/18/19 19:03 Dose: 100 ml Lactated Ringer's (Ringers, Lactated) 1,000 mls @ 100 mls/hr IV ASDIRECTED YTRONE Last Admin: 01/18/19 19:26 Dose: 999 mls/hr Infusion: 01/18/19 19:26 Dose: 999 mls/hr Admin: 01/18/19 18:36 Dose: 999 mls/hr Infusion: 01/18/19 18:36 Dose: 100 mls/hr Admin: 01/18/19 12:43 Dose: 100 mls/hr Oxytocin/Lactated Ringer's (Pitocin In Lr 10 Units/1,000 Ml) 10 unit in 1,000 mls @ 12 mls/hr IV TITRATE TYRONE; Protocol Last Titration: 01/18/19 20:31 Dose: 12 munits/min, 72 mls/hr Titration: 01/18/19 16:10 Dose: 16 munits/min, 96 mls/hr Titration: 01/18/19 15:45 Dose: 14 munits/min, 84 mls/hr Titration: 01/18/19 15:21 Dose: 12 munits/min, 72 mls/hr Titration: 01/18/19 14:15 Dose: 10 munits/min, 60 mls/hr Titration: 01/18/19 13:50 Dose: 8 munits/min, 48 mls/hr Titration: 01/18/19 13:30 Dose: 6 munits/min, 36 mls/hr Titration: 01/18/19 13:00 Dose: 4 munits/min, 24 mls/hr Admin: 01/18/19 12:44 Dose: 2 munits/min, 12 mls/hr Oxytocin/Lactated Ringer's (Pitocin In Lr 10 Units/1,000 Ml) 10 unit in 1,000 mls @ 500 mls/hr IV .CONTINUOUS TYRONE Nalbuphine HCl (Nubain) 10 mg IVPUSH Q2H PRN PRN Reason: pain Sodium Chloride (Saline Flush) 10 ml FLUSH ASDIRECTED PRN PRN Reason: Keep Vein Open Assessment/Plan Comment:: Term induction. AROM clear fluid.
[2019-01-18] MEDS ORDERED: Witch Hazel Medicated Pads 40/Jar TOP PRN (23:01)
[2019-01-18] MEDS ORDERED: Benzocaine/Menthol 20%-0.5% Spray 56 GM Canister TOP PRN (23:01)
[2019-01-18] MEDS ORDERED: Lanolin 100% Cream 7 GM Tube TOP PRN (23:01)
[2019-01-18] MEDS ORDERED: Ibuprofen 600 MG Tab PO PRN (23:01)
[2019-01-19] MEDS ORDERED: Oxytocin/Lactated Ringers 10 UNIT/1,000 ML BAG IV ONE (01:02)
--- NOTE | 2019-01-19 08:42 | PCM48HPAN ---
Post Anesthesia Note - EVALUATION WITHIN 48HRS OF ANESTHETIC Vital Signs in Normal Range: Yes Patient Participated in Evaluation: Yes Respiratory Function Stable: Yes Airway Patent: Yes Cardiovascular Function Stable: Yes Hydration Status Stable: Yes Pain Control Satisfactory: Yes Nausea and Vomiting Control Satisfactory: Yes Mental Status Recovered: Yes - COMMENTS/OBSERVATIONS Free Text/Narrative:: Patient has been up ambulating. No complications noted. No further questions at this time.
--- NOTE | 2019-01-19 12:30 | PCM.PNPP ---
- General Info Date of Service: 01/19/19 Functional Status: Reports: Pain Controlled - Review of Systems General: Reports: No Symptoms HEENT: Reports: No Symptoms Pulmonary: Reports: No Symptoms Cardiovascular: Reports: No Symptoms 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: Reports: No Symptoms Genitourinary: Reports: No Symptoms Musculoskeletal: Reports: No Symptoms Skin: Reports: No Symptoms Neurological: Reports: No Symptoms Psychiatric: Reports: No Symptoms - General Info Date of Service: 01/19/19 - Patient Data Vital Signs - Most Recent: Last Vital Signs Temp 35.9 C 01/19/19 10:19 Pulse 74 01/19/19 10:19 Resp 6 L 01/19/19 10:19 BP 113/83 01/19/19 10:19 Pulse Ox 98 01/19/19 10:19 Weight - Most Recent: 83.915 kg I&O - Last 24 Hours: Intake & Output 01/18/19 01/19/19 01/19/19 22:59 06:59 14:59 Intake Total 2000 2 Output Total 300 500 Balance 1700 -500 2 Lab Results - Last 24 Hours: Laboratory Results - last 24 hr 01/18/19 01/19/19 Range/Units 13:00 05:45 WBC 8.02 (3.98-10.04) K/mm3 RBC 3.78 L (3.98-5.22) M/mm3 Hgb 11.0 L (11.2-15.7) gm/L Hct 31.7 L (34.1-44.9) % MCV 83.9 (79.4-94.8) fl MCH 29.1 (25.6-32.2) pg MCHC 34.7 (32.2-35.5) g/dl RDW Std Deviation 44.0 (36.4-46.3) fL Plt Count 209 (182-369) K/mm3 MPV 9.7 (9.4-12.3) fl Neut % (Auto) 72.5 H (34.0-71.1) % Lymph % (Auto) 19.5 (19.3-51.7) % [place] % (Auto) 5.7 (4.7-12.5) % Eos % (Auto) 1.6 (0.7-5.8) Baso % (Auto) 0.1 (0.1-1.2) % Neut # (Auto) 5.81 (1.56-6.13) K/mm3 Lymph # (Auto) 1.56 (1.18-3.74) K/mm3 [place] # (Auto) 0.46 H (0.24-0.36) K/mm3 Eos # (Auto) 0.13 (0.04-0.36) K/mm3 Baso # (Auto) 0.01 (0.01-0.08) K/mm3 Blood Type A NEGATIVE Gel Antibody Screen Positive Screen 1 ros/5 flds - neg RhIG Candidate? Yes Rhogam Indicated Yes, baby rh pos H Med Orders - Current: Current Medications Benzocaine/Menthol (Dermoplast Pain Relief [place]) 0 gm TOP ASDIRECTED PRN PRN Reason: Perineal Comfort Measure Last Admin: 01/19/19 00:06 Dose: 1 can Emollient Ointment (Lansinoh Hpa) 0 gm TOP ASDIRECTED PRN PRN Reason: Sore Nipples Ibuprofen (Motrin) 600 mg PO Q6H PRN PRN Reason: Mild pain or fever Last Admin: 01/19/19 00:06 Dose: 600 mg Witch Pamela (Tucks) 1 pad TOP ASDIRECTED PRN PRN Reason: Pain (moderate 4-6) Last Admin: 01/19/19 00:06 Dose: 1 jar Discontinued Medications Diphenhydramine HCl (Benadryl) 25 mg IVPUSH Q6H PRN PRN Reason: Itching Ephedrine Sulfate (Ephedrine Sulfate) 5 mg IVPUSH ASDIRECTED PRN PRN Reason: HYPOTENTSION Fentanyl (Sublimaze) 100 mcg EPIDUR Q3H PRN PRN Reason: Pain Last Admin: 01/18/19 19:03 Dose: 100 mcg Fentanyl/Bupivacaine HCl (Xdiuxovn-Guicg-Mq 2 Mcg/Ml-0.125%) 100 ml EPIDUR ASDIRECTED TYRONE Last Admin: 01/18/19 19:03 Dose: 100 ml Lactated Ringer's (Ringers, Lactated) 1,000 mls @ 100 mls/hr IV ASDIRECTED TYRONE Last Admin: 01/18/19 19:26 Dose: 999 mls/hr Oxytocin/Lactated Ringer's (Pitocin In Lr 10 Units/1,000 Ml) 10 unit in 1,000 mls @ 12 mls/hr IV TITRATE TYRONE; Protocol Last Titration: 01/18/19 20:31 Dose: 12 munits/min, 72 mls/hr Oxytocin/Lactated Ringer's (Pitocin In Lr 10 Units/1,000 Ml) 10 unit in 1,000 mls @ 500 mls/hr IV .CONTINUOUS TYRONE Last Admin: 01/18/19 22:42 Dose: 500 mls/hr Lactated Ringer's (Ringers, Lactated) Confirm Administered Dose 1,000 mls @ as directed .ROUTE .STK-MED ONE Stop: 01/18/19 12:42 Last Admin: 01/18/19 13:03 Dose: Not Given Oxytocin/Lactated Ringer's (Pitocin In Lr 10 Units/1,000 Ml) Confirm Administered Dose 10 unit in 1,000 mls @ as directed IV .STK-MED ONE Stop: 01/18/19 12:42 Last Admin: 01/18/19 13:03 Dose: Not Given Oxytocin/Lactated Ringer's (Pitocin In Lr 10 Units/1,000 Ml) Confirm Administered Dose 10 unit in 1,000 mls @ as directed IV .STK-MED ONE Stop: 01/19/19 01:03 Last Admin: 01/19/19 01:00 Dose: 500 mls/hr Nalbuphine HCl (Nubain) 10 mg IVPUSH Q2H PRN PRN Reason: pain Sodium Chloride (Saline Flush) 10 ml FLUSH ASDIRECTED PRN PRN Reason: Keep Vein Open - Infant Interaction Infant Disposition, : [place] in Room with Family Support Person: - Recovery Exam Fundal Tone: Firm Fundal Level: At Umbilicus Fundal Placement: Midline Lochia Amount: Small Lochia Color: [place]/Red Episiotomy/Laceration: Approximated Bladder Status: Voiding - Exam General: Alert, Oriented HEENT: Pupils Equal Neck: Supple Lungs: Clear to Auscultation, Normal Respiratory Effort Cardiovascular: Regular Rate, Regular Rhythm GI/Abdominal Exam: Normal Bowel Sounds, Soft, Non-Tender, No Organomegaly, No Distention, No Abnormal Bruit, No Mass, Pelvis Stable Extremities: Normal Inspection, Normal Range of Motion, Non-Tender, No Pedal Edema, Normal Capillary Refill Neurological: No New Focal Deficit Psy/Mental Status: Alert, Normal Affect, Normal Mood - Problem List Review Problem List Initiated/Reviewed/Updated: Yes - My Orders Last 24 Hours: My Active Orders 01/18/19 12:36 Heart Tones [RC] ASDIRECTED Resuscitation Status Routine 01/18/19 13:00 RAPID PLASMA REAGIN,RPR [CHEM] Routine 01/18/19 23:01 Activity as Tolerated [RC] PER UNIT ROUTINE Vital Signs [RC] 03,09,15,21 Benzocaine/Menthol [Dermoplast Pain Relief [place]] See Dose Instructions TOP ASDIRECTED PRN Ibuprofen [Motrin] 600 mg PO Q6H PRN Lanolin [Lansinoh HPA] See Dose Instructions TOP ASDIRECTED PRN Witch Pamela [Tucks] 1 pad TOP ASDIRECTED PRN Assess Lochia [WOMSER] Per Unit Routine Assess Uterine Involution [WOMSER] Per Unit Routine Breast Pump [WOMSER] Per Unit Routine Heat Therapy [OM.PC] PRN Medication Administration Instruction [OM.PC] Routine Perineal Care [OM.PC] Per Unit Routine Sitz Bath [OM.PC] Per Unit Routine 01/19/19 05:45 ANTIBODY IDENTIFICATION [BBK] Routine SCREEN [BBK] Routine RH IMMUNE GLOBULIN [BBK] Routine RHOGAM, [RHIG WORKUP, ] [BBK] Routine 01/19/19 23:01 Heat Therapy [OM.PC] PRN PPD1 Doing great. Plan discharge tomorrow. Bleeding minimal now No pain.
[2019-01-20 04:06] VITALS: BP 133/95
--- NOTE | 2019-01-20 07:45 | PCM.PNPP ---
- General Info Date of Service: 01/20/19 Functional Status: Reports: Pain Controlled, Tolerating Diet, Ambulating, Urinating - Review of Systems General: Reports: No Symptoms Pulmonary: Reports: No Symptoms Cardiovascular: Reports: No Symptoms 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: Reports: No Symptoms Genitourinary: Reports: No Symptoms Musculoskeletal: Reports: No Symptoms Neurological: Reports: No Symptoms - Patient Data Vital Signs - Most Recent: Last Vital Signs Temp 36.7 C 01/20/19 03:36 Pulse 64 01/20/19 03:36 Resp 16 01/20/19 03:36 BP 133/95 H 01/20/19 03:36 Pulse Ox 99 01/20/19 03:36 Weight - Most Recent: 83.915 kg Lab Results - Last 24 Hours: Laboratory Results - last 24 hr 01/18/19 01/19/19 Range/Units 13:00 05:45 RPR Non-reactive (NONREACTIVE) Blood Type A NEGATIVE Gel Antibody Screen Positive Screen 1 ros/5 flds - neg RhIG Candidate? Yes Rhogam Indicated Yes, baby rh pos H Med Orders - Current: Current Medications Benzocaine/Menthol (Dermoplast Pain Relief [place]) 0 gm TOP ASDIRECTED PRN PRN Reason: Perineal Comfort Measure Last Admin: 01/19/19 00:06 Dose: 1 can Emollient Ointment (Lansinoh Hpa) 0 gm TOP ASDIRECTED PRN PRN Reason: Sore Nipples Ibuprofen (Motrin) 600 mg PO Q6H PRN PRN Reason: Mild pain or fever Last Admin: 01/19/19 00:06 Dose: 600 mg Witch Pamela (Tucks) 1 pad TOP ASDIRECTED PRN PRN Reason: Pain (moderate 4-6) Last Admin: 01/19/19 00:06 Dose: 1 jar Discontinued Medications Diphenhydramine HCl (Benadryl) 25 mg IVPUSH Q6H PRN PRN Reason: Itching Ephedrine Sulfate (Ephedrine Sulfate) 5 mg IVPUSH ASDIRECTED PRN PRN Reason: HYPOTENTSION Fentanyl (Sublimaze) 100 mcg EPIDUR Q3H PRN PRN Reason: Pain Last Admin: 01/18/19 19:03 Dose: 100 mcg Fentanyl/Bupivacaine HCl (Zpubblxi-Chgqd-Qh 2 Mcg/Ml-0.125%) 100 ml EPIDUR ASDIRECTED TYRONE Last Admin: 01/18/19 19:03 Dose: 100 ml Lactated Ringer's (Ringers, Lactated) 1,000 mls @ 100 mls/hr IV ASDIRECTED TYRONE Last Admin: 01/18/19 19:26 Dose: 999 mls/hr Oxytocin/Lactated Ringer's (Pitocin In Lr 10 Units/1,000 Ml) 10 unit in 1,000 mls @ 12 mls/hr IV TITRATE TYRONE; Protocol Last Titration: 01/18/19 20:31 Dose: 12 munits/min, 72 mls/hr Oxytocin/Lactated Ringer's (Pitocin In Lr 10 Units/1,000 Ml) 10 unit in 1,000 mls @ 500 mls/hr IV .CONTINUOUS TYRONE Last Admin: 01/18/19 22:42 Dose: 500 mls/hr Lactated Ringer's (Ringers, Lactated) Confirm Administered Dose 1,000 mls @ as directed .ROUTE .Culinary Agents-MED ONE Stop: 01/18/19 12:42 Last Admin: 01/18/19 13:03 Dose: Not Given Oxytocin/Lactated Ringer's (Pitocin In Lr 10 Units/1,000 Ml) Confirm Administered Dose 10 unit in 1,000 mls @ as directed IV .[employer]-MED ONE Stop: 01/18/19 12:42 Last Admin: 01/18/19 13:03 Dose: Not Given Oxytocin/Lactated Ringer's (Pitocin In Lr 10 Units/1,000 Ml) Confirm Administered Dose 10 unit in 1,000 mls @ as directed IV .Culinary Agents-MED ONE Stop: 01/19/19 01:03 Last Admin: 01/19/19 01:00 Dose: 500 mls/hr Nalbuphine HCl (Nubain) 10 mg IVPUSH Q2H PRN PRN Reason: pain Sodium Chloride (Saline Flush) 10 ml FLUSH ASDIRECTED PRN PRN Reason: Keep Vein Open - Interaction Disposition, : Transfer in Room with Family Interaction: Holding Infant Feeding: Breastfed Infant; Nursed Well Support Person: - Recovery Exam Fundal Tone: Firm Fundal Level: At Umbilicus Fundal Placement: Midline Lochia Amount: Small Lochia Color: Rubra/Red Episiotomy/Laceration: Approximated Bladder Status: Voiding - Exam General: Alert, Oriented, Cooperative GI/Abdominal Exam: Soft, Non-Tender Extremities: Normal Inspection Skin: Warm, Dry, Intact - Problem List & Annotations (1) 39 weeks gestation of SNOMED Code(s): 75658453 Code(s): Z3A.39 - 39 WEEKS GESTATION OF Status: Acute Current Visit: Yes (2) Vaginal delivery SNOMED Code(s): 778989792 Code(s): O80 - ENCOUNTER FOR FULL-TERM UNCOMPLICATED DELIVERY Status: Acute Current Visit: Yes - Problem List Review Problem List Initiated/Reviewed/Updated: Yes - My Orders Last 24 Hours: My Active Orders 01/20/19 07:13 Ready for Discharge [RC] PER UNIT ROUTINE - Assessment Assessment:: PPD#2 from at 39 2/7 wks - Plan Plan:: * Routine cares * Encourage breast feeding * Discharge home today
--- NOTE | 2019-01-20 07:47 | PCM.DCSUM1 ---
Discharge Summary - Discharge Data Discharge Date: 01/20/19 Discharge Disposition: Home, Self-Care 01 Condition: Good - Discharge Diagnosis/Problem(s) (1) 39 weeks gestation of SNOMED Code(s): 28705371 ICD Code: Z3A.39 - 39 WEEKS GESTATION OF Status: Acute Current Visit: Yes (2) Vaginal delivery SNOMED Code(s): 880902329 ICD Code: O80 - ENCOUNTER FOR FULL-TERM UNCOMPLICATED DELIVERY Status: Acute Current Visit: Yes - Patient Summary/Data Complications: None Consults: None Recommended Follow-up Testing/Procedures: Follow up in 3-6 weeks for exam Hospital Course: 28 y/o presented at 39 2/7 wks for elective IOL. She did well with this and underwent an uncomplicated . See delivery note. she did well and was discharged home on PPD#2 - Patient Instructions Diet: Regular Diet as Tolerated Activity: As Tolerated Activity, Other: Pelvic rest for 6 weeks Driving: May Drive Today Showering/Bathing: May Shower Showering/Bathing, Other: May Bathe Notify Provider of: Fever, Increased Pain, Swelling and Redness, Drainage, Nausea and/or Vomiting - Discharge Plan *PRESCRIPTION DRUG MONITORING PROGRAM REVIEWED*: Not Applicable *COPY OF PRESCRIPTION DRUG MONITORING REPORT IN PATIENT ALEXSANDRA: Not Applicable Home Medications: Home Meds Vits #93/Iron Fum/FA [ Formula Tablet] 1 each PO DAILY [History] Ibuprofen [Motrin] 600 mg PO Q6H PRN tablet 01/20/19 [Rx] Referrals: Elissa Jimenez MD [Physician] - (3-6 weeks for check ) - Discharge Summary/Plan Comment DC Time >30 min.: No - Patient Data Vitals - Most Recent: Last Vital Signs Temp 36.7 C 01/20/19 03:36 Pulse 64 01/20/19 03:36 Resp 16 01/20/19 03:36 BP 133/95 H 01/20/19 03:36 Pulse Ox 99 01/20/19 03:36 Weight - Most Recent: 83.915 kg Lab Results - Last 24 hrs: Laboratory Results - last 24 hr 01/18/19 01/19/19 Range/Units 13:00 05:45 RPR Non-reactive (NONREACTIVE) Blood Type A NEGATIVE Gel Antibody Screen Positive Screen 1 ros/5 flds - neg RhIG Candidate? Yes Rhogam Indicated Yes, baby rh pos H Med Orders - Current: Current Medications Benzocaine/Menthol (Dermoplast Pain Relief [place]) 0 gm TOP ASDIRECTED PRN PRN Reason: Perineal Comfort Measure Last Admin: 01/19/19 00:06 Dose: 1 can Emollient Ointment (Lansinoh Hpa) 0 gm TOP ASDIRECTED PRN PRN Reason: Sore Nipples Ibuprofen (Motrin) 600 mg PO Q6H PRN PRN Reason: Mild pain or fever Last Admin: 01/19/19 00:06 Dose: 600 mg Witch Pamela (Tucks) 1 pad TOP ASDIRECTED PRN PRN Reason: Pain (moderate 4-6) Last Admin: 01/19/19 00:06 Dose: 1 jar Discontinued Medications Diphenhydramine HCl (Benadryl) 25 mg IVPUSH Q6H PRN PRN Reason: Itching Ephedrine Sulfate (Ephedrine Sulfate) 5 mg IVPUSH ASDIRECTED PRN PRN Reason: HYPOTENTSION Fentanyl (Sublimaze) 100 mcg EPIDUR Q3H PRN PRN Reason: Pain Last Admin: 01/18/19 19:03 Dose: 100 mcg Fentanyl/Bupivacaine HCl (Scptkube-Ppixr-Cx 2 Mcg/Ml-0.125%) 100 ml EPIDUR ASDIRECTED TYRONE Last Admin: 01/18/19 19:03 Dose: 100 ml Lactated Ringer's (Ringers, Lactated) 1,000 mls @ 100 mls/hr IV ASDIRECTED TYRONE Last Admin: 01/18/19 19:26 Dose: 999 mls/hr Oxytocin/Lactated Ringer's (Pitocin In Lr 10 Units/1,000 Ml) 10 unit in 1,000 mls @ 12 mls/hr IV TITRATE TYRONE; Protocol Last Titration: 01/18/19 20:31 Dose: 12 munits/min, 72 mls/hr Oxytocin/Lactated Ringer's (Pitocin In Lr 10 Units/1,000 Ml) 10 unit in 1,000 mls @ 500 mls/hr IV .CONTINUOUS TYRONE Last Admin: 01/18/19 22:42 Dose: 500 mls/hr Lactated Ringer's (Ringers, Lactated) Confirm Administered Dose 1,000 mls @ as directed .ROUTE .STK-MED ONE Stop: 01/18/19 12:42 Last Admin: 01/18/19 13:03 Dose: Not Given Oxytocin/Lactated Ringer's (Pitocin In Lr 10 Units/1,000 Ml) Confirm Administered Dose 10 unit in 1,000 mls @ as directed IV .STK-MED ONE Stop: 01/18/19 12:42 Last Admin: 01/18/19 13:03 Dose: Not Given Oxytocin/Lactated Ringer's (Pitocin In Lr 10 Units/1,000 Ml) Confirm Administered Dose 10 unit in 1,000 mls @ as directed IV .[employer]-MED ONE Stop: 01/19/19 01:03 Last Admin: 01/19/19 01:00 Dose: 500 mls/hr Nalbuphine HCl (Nubain) 10 mg IVPUSH Q2H PRN PRN Reason: pain Sodium Chloride (Saline Flush) 10 ml FLUSH ASDIRECTED PRN PRN Reason: Keep Vein Open
== END 2019-01-20 09:30 | disposition home or self-care (01) | DRG 807 ==
LOC: JD.OB 12:10 → OBSVTOIN 22:48 → INTOOBSV 22:48 → JD.OB 22:48 → UNDODISIN 01-20 09:30
PROVIDERS: ADMIT Obstetrics & Gynecology; ATTEND Obstetrics & Gynecology
PROC: 3E0P7VZ Introduction of Hormone into Female Reproductive, Via Natural or Artificial Opening (ICD-10-PCS; principal; 2019-01-18)
PROC: 10907ZC Drainage of Amniotic Fluid, Therapeutic from Products of Conception, Via Natural or Artificial Opening (ICD-10-PCS; principal; 2019-01-18)
PROC: 10E0XZZ Delivery of Products of Conception, External Approach (ICD-10-PCS; principal; 2019-01-18)
PROC: 0KQM0ZZ Repair Perineum Muscle, Open Approach (ICD-10-PCS; principal; 2019-01-18)
PROC: 00HU33Z Insertion of Infusion Device into Spinal Canal, Percutaneous Approach (ICD-10-PCS; 2019-01-18)
PROC: 3E0R3BZ Introduction of Anesthetic Agent into Spinal Canal, Percutaneous Approach (ICD-10-PCS; 2019-01-18)
PROC: 3E0234Z Introduction of Serum, Toxoid and Vaccine into Muscle, Percutaneous Approach (ICD-10-PCS; 2019-01-19)
DX: O99.344 Other mental disorders complicating childbirth (principal); Z37.0 Single live birth; Z3A.39 39 weeks gestation of pregnancy; F32.9 Major depressive disorder, single episode, unspecified; O99.62 Diseases of the digestive system complicating childbirth; K21.9 Gastro-esophageal reflux disease without esophagitis; O26.893 Other specified pregnancy related conditions, third trimester; Z67.11 Type A blood, Rh negative; O70.1 Second degree perineal laceration during delivery; O69.81X0 Labor and delivery complicated by cord around neck, without compression, not applicable or unspecified; Z91.5 Personal history of self-harm; Z87.891 Personal history of nicotine dependence
CPT/HCPCS: 01967; 36415; 51701; 59025; 59409; 85025; 85461; 86592; 86850; 86870; 86900; 86901; A9270-GY; J2590; J2790; J3010; J3490; J7120

== ENCOUNTER 2019-02-17 20:51 | Emergency (ER) | payer OTHER ==
[2019-02-17 21:10] VITALS: BP 137/88
[2019-02-17] MEDS ORDERED: Alum Hydrox/Mag Hydrox/Simeth 30 ML, Lidocaine 2% 15 ML PO ONE ×2 (21:21)
--- NOTE | 2019-02-17 21:22 | EDM.PDOC ---
ED HPI GENERAL MEDICAL PROBLEM - General Chief Complaint: Abdominal Pain Stated Complaint: ABDOMINAL PAIN Time Seen by Provider: 02/17/19 21:15 - History of Present Illness INITIAL COMMENTS - FREE TEXT/NARRATIVE: 28-year-old female presents emergency room with abdominal pain. This pain started today she's had intermittent episodes much milder in the past. Patient is approximately one month . Today she ate brunch and that went okay at supper she was eating vegetables and a pork chop and developed pre-significant right upper quadrant discomfort. She has no prior history surgeries she has not had much nausea no vomiting no change in bowel or bladder habits. Her course has been unremarkable urine she had lots problems with heartburn. 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: Psychiatric History: Reports: Depression, Suicide Attempt Other Psychiatric History: at age 16 pt states she tried to cut or scrape wrists Social & Family History - Family History Family Medical History: Noncontributory - Tobacco Use Smoking Status *Q: Never Smoker - Caffeine Use Caffeine Use: Reports: Coffee - Recreational Drug Use Recreational Drug Use: No ED ROS GENERAL - Review of Systems Review Of Systems: See Below Constitutional: Reports: No Symptoms HEENT: Reports: No Symptoms Respiratory: Reports: No Symptoms Cardiovascular: Reports: No Symptoms GI/Abdominal: Reports: Abdominal Pain. Denies: Constipation, Diarrhea, Vomiting : Reports: No Symptoms Neurological: Reports: No Symptoms ED EXAM, GI/ABD - Physical Exam Exam: See Below Exam Limited By: No Limitations General Appearance: Alert, No Apparent Distress Head: Atraumatic, Normocephalic Neck: Normal Inspection, Supple, Non-Tender, Full Range of Motion Respiratory/Chest: No Respiratory Distress, Lungs Clear, Normal Breath Sounds Cardiovascular: Regular Rate, Rhythm, No Edema, No Murmur GI/Abdominal Exam: Normal Bowel Sounds, Soft, Tender ( right upper quadrant discomfort right over the gallbladder no other areas of palpable tenderness appreciated no rigidity rebound or guarding noted) Back Exam: Normal Inspection. No: CVA Tenderness (L), CVA Tenderness (R) Extremities: Normal Inspection, No Pedal Edema Course - Vital Signs Last Recorded V/S: Last Vital Signs Temp 36.1 C 02/17/19 21:08 Pulse 71 02/17/19 21:08 Resp 20 02/17/19 21:08 BP 137/88 02/17/19 21:08 Pulse Ox 100 02/17/19 21:08 - Orders/Labs/Meds Labs: Laboratory Tests 02/17/19 02/17/19 02/17/19 Range/Units 21:36 21:36 22:05 WBC 11.07 H (3.98-10.04) K/mm3 RBC 4.81 (3.98-5.22) M/mm3 Hgb 13.5 D (11.2-15.7) gm/L Hct 40.0 (34.1-44.9) % MCV 83.2 (79.4-94.8) fl MCH 28.1 (25.6-32.2) pg MCHC 33.8 (32.2-35.5) g/dl RDW Std Deviation 39.0 (36.4-46.3) fL Plt Count 302 (182-369) K/mm3 MPV 10.0 (9.4-12.3) fl Neutrophils % (Manual) 68 H (40-60) % Band Neutrophils % 0 (0-10) % Lymphocytes % (Manual) 26 (20-40) % Monocytes % (Manual) 2 (2-10) % Eosinophils % (Manual) 3 (0.7-5.8) % Basophils % (Manual) 1 (0.1-1.2) Platelet Estimate Adequate Plt Morphology Comment Normal RBC Morph Comment Normal Sodium 140 (136-145) mEq/L Potassium 4.2 (3.5-5.1) mEq/L Chloride 103 (98-107) mEq/L Carbon Dioxide 25 (21-32) mEq/L Anion Gap 16.2 H (5-15) BUN 13 (7-18) mg/dL Creatinine 1.0 (0.55-1.02) mg/dL Est Cr Clr Drug Dosing 72.97 mL/min Estimated GFR (MDRD) > 60 (>60) mL/min BUN/Creatinine Ratio 13.0 L (14-18) Glucose 108 H (74-106) mg/dL Calcium 9.7 (8.5-10.1) mg/dL Total Bilirubin 0.6 (0.2-1.0) mg/dL Direct Bilirubin 0.30 H (0.0-0.2) mg/dl Indirect Bilirubin 0.3 (0.1-1.0) mg/dL AST 161 H (15-37) U/L ALT 202 H (14-59) U/L Alkaline Phosphatase 163 H (46-116) U/L Total Protein 7.4 (6.4-8.2) g/dl Albumin 4.1 (3.4-5.0) g/dl Globulin 3.3 gm/dL Albumin/Globulin Ratio 1.2 (1-2) Lipase 63576 H (73-393) U/L Urine Color Yellow (Yellow) Urine Appearance Clear (Clear) Urine pH 6.0 (5.0-8.0) Ur Specific [place] 1.015 (1.005-1.030) Urine Protein Negative (Negative) Urine Glucose (UA) Negative (Negative) Urine Ketones Negative (Negative) Urine Occult Blood Negative (Negative) Urine Nitrite Negative (Negative) Urine Bilirubin Negative (Negative) Urine Urobilinogen 0.2 (0.2-1.0) Ur Leukocyte Esterase Trace H (Negative) Urine RBC 0-5 (0-5) /hpf Urine WBC 0-5 (0-5) /hpf Ur Epithelial Cells 0-5 (0-5) /hpf Urine Bacteria Few H (FEW) /hpf Urine Mucus Not seen (FEW) /hpf Meds: Medications Discontinued Medications Generic Name Dose Route Start Last Admin Trade Name Freq PRN Reason Stop Dose Admin Al Hydroxide/Mg Hydroxide 30 0 ml 02/17/19 21:21 02/17/19 21:36 ml/ Lidocaine HCl 15 ml PO 02/17/19 21:22 45 ml ONETIME ONE Administration - Re-Assessments/Exams Free Text/Narrative Re-Assessment/Exam: Case reviewed with Dr. Berman labs reviewed and physical exam findings. He will see in the clinic gallbladder ultrasound has been ordered. Departure - Departure Time of Disposition: 22:30 Disposition: Home, Self-Care 01 Clinical Impression: Right upper quadrant pain, Elevated lipase - Discharge Information Referrals: PCP,None [Primary Care Provider] - Forms: ED Department Discharge
== END 2019-02-17 23:00 | disposition home or self-care (01) ==
LOC: JD.ED 20:51
DX: O99.89 Other specified diseases and conditions complicating pregnancy, childbirth and the puerperium (principal); R10.11 Right upper quadrant pain; R74.8 Abnormal levels of other serum enzymes
CPT/HCPCS: 36415; 80048; 80076; 81001; 83690; 85007; 85027; 99284; A9270; 99283

== ENCOUNTER 2019-02-21 08:15 | Day surgery (SDC) | payer OTHER ==
[~2019-02-21 08:15] MED LIST: Lactated Ringers 1,000 ML IV SCH; Lidocaine 1%/Sod Bicarbonate in NS 8.4% 1 ML Syringe IDERM PRN; Sodium Chloride 0.9% 10 ML Syringe FLUSH PRN
--- NOTE | 2019-02-21 09:24 | PCM.PREANE ---
Preanesthetic Assessment - Anesthesia/Transfusion/Family Hx Anesthesia History: Prior Anesthesia Without Reaction Family History of Anesthesia Reaction: No Transfusion History: No Prior Transfusion(s) - Review of Systems General: No Symptoms Pulmonary: No Symptoms Cardiovascular: No Symptoms 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: No Symptoms Neurological: No Symptoms Other: Reports: None (Post one month) - Physical Assessment NPO Status Date: 02/20/19 NPO Status Time: 23:00 Pulse: 86 O2 Sat by Pulse Oximetry: 96 Respiratory Rate: 16 Blood Pressure: 114/81 Temperature: 36.4 C Weight: 72 kg ASA Class: 1 Mental Status: Alert & Oriented x3 Airway Class: Mallampati = 1 Dentition: Reports: Normal Dentition Thyro-Mental Finger Breadths: 3 Mouth Opening Finger Breadths: 3 ROM/Head Extension: Full Lungs: Clear to Auscultation, Normal Respiratory Effort Cardiovascular: Regular Rate, Regular Rhythm - Lab Values: Laboratory Last Values Urine HCG, Qual Negative (NEGATIVE) 02/21/19 08:21 - Allergies Allergies/Adverse Reactions: Allergies Allergy/AdvReac Type Severity Reaction Status Date / Time No Known Allergies Allergy Verified 01/18/19 12:35 - Acknowledgements Anesthesia Type Planned: General Anesthesia Pt an Appropriate Candidate for the Planned Anesthesia: Yes Alternatives and Risks of Anesthesia Discussed w Pt/Guardian: Yes Pt/Guardian Understands and Agrees with Anesthesia Plan: Yes PreAnesthesia Questionnaire Respiratory History: Reports: Asthma Other Respiratory History: EXERCISE INDUCED, does not use inhaler, pt is ex smoker 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: Reports: GERD 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: Psychiatric History: Reports: Depression, Suicide Attempt Other Psychiatric History: at age 16 pt states she tried to cut or scrape wrists - HOME MEDS Home Medications: Home Meds Vits #93/Iron Fum/FA [ Formula Tablet] 1 each PO DAILY [History] - CURRENT (IN HOUSE) MEDS Current Meds: Current Medications Lactated Ringer's (Ringers, Lactated) 1,000 mls @ 125 mls/hr IV ASDIRECTED TYRONE Stop: 02/21/19 23:00 Last Admin: 02/21/19 08:40 Dose: 125 mls/hr Lidocaine/Sodium Bicarbonate (Buffered Lidocaine 1% In Ns 8.4%) 0.25 ml IDERM ONETIME PRN PRN Reason: Prior to IV Start Stop: 02/21/19 18:00 Last Admin: 02/21/19 08:39 Dose: 0.25 ml Sodium Chloride (Saline Flush) 10 ml FLUSH ASDIRECTED PRN PRN Reason: Keep Vein Open Stop: 02/21/19 18:00
[2019-02-21] MEDS ORDERED: Lidocaine 1% 4 ML ONE (09:43)
[2019-02-21] MEDS ORDERED: Lactated Ringers 1,000 ML ONE (09:43)
[2019-02-21] MEDS ORDERED: ceFAZolin 1 GM Vial ONE (09:43)
[2019-02-21] MEDS ORDERED: Rocuronium 50 MG/5 ML Vial ONE (09:43)
[2019-02-21] MEDS ORDERED: Ondansetron 4 MG/2 ML SDV ONE (09:43)
[2019-02-21] MEDS ORDERED: Propofol 200 MG/20 ML SDV ONE (09:43)
[2019-02-21] MEDS ORDERED: Midazolam 1 MG/ML 2 ML SDV ONE (09:44)
[2019-02-21] MEDS ORDERED: fentaNYL 250 MCG/5 ML SDV ONE (09:44)
[2019-02-21] MEDS ORDERED: Neostigmine Methylsulfate 1 MG/ML 5 ML Syringe ONE (10:21)
[2019-02-21] MEDS ORDERED: Ondansetron 4 MG/2 ML SDV IVPUSH PRN (10:22)
[2019-02-21] MEDS ORDERED: fentaNYL 100 MCG/2 ML SDV IVPUSH PRN (10:22)
[2019-02-21] MEDS ORDERED: HYDROmorphone 0.5 MG/0.5 ML Syringe IVPUSH PRN (10:22)
[2019-02-21] MEDS ORDERED: diphenhydrAMINE 50 MG/ML SDV IVPUSH PRN (10:22)
[2019-02-21] MEDS ORDERED: Ketorolac 30 MG/ML SDV ONE (10:27)
[2019-02-21] MEDS ORDERED: Morphine 2 MG/ML Syringe IVPUSH PRN (10:49)
[2019-02-21] MEDS ORDERED: Acetaminophen/oxyCODONE 325-5 MG Tab PO PRN (10:50)
--- NOTE | 2019-02-21 10:57 | PCM.POSTAN ---
POST ANESTHESIA ASSESSMENT - MENTAL STATUS Mental Status: Alert, Oriented - VITAL SIGNS Pulse Rate: 90 SaO2: 100 Resp Rate: 8 Blood Pressure: 115/84 Temperature: 36.3 C - RESPIRATORY Respiratory Status: Respiratory Rate WNL, Airway Patent, O2 Saturation Stable, Supplemental Oxygen - CARDIOVASCULAR CV Status: Pulse Rate WNL, Blood Pressure Stable - GASTROINTESTINAL GI Status: No Symptoms - PAIN Pain Score: 0 - POST OP HYDRATION Hydration Status: Adequate & Stable
--- NOTE | 2019-02-21 13:52 | OR ---
DATE OF OPERATION: 02/21/2019 SURGEON: Tito Berman MD PREOPERATIVE DIAGNOSIS: Chronic cholecystitis, cholelithiasis. POSTOPERATIVE DIAGNOSIS: Chronic cholecystitis, cholelithiasis. OPERATION PERFORMED: Laparoscopic cholecystectomy. ANESTHESIA: General. ESTIMATED BLOOD LOSS: Minimum. SPECIMEN: Gallbladder and stones. INDICATION FOR PROCEDURE: This 28-year-old female is 1 month . She presented to the emergency room last week with right upper quadrant abdominal pain. Of note, she had an elevated amylase, which would be consistent with common bile duct stones that had passed causing irritation in the pancreas. She has an ultrasound that shows multiple small stones within the gallbladder. She presents for elective cholecystectomy. DESCRIPTION OF PROCEDURE: After adequate preparation, a 5 mm trocar was placed infraumbilically and the abdomen insufflated. Under direct vision, 3 other trocars were placed. The gallbladder was elevated up over the liver and the cystic triangle structures were dissected free. These were then triply clipped and divided. The gallbladder appeared to be normal. It was not thickened. No evidence of infection. The gallbladder was taken off the liver bed using blunt, sharp, and Bovie dissection. There was only minimal bleeding on the gallbladder bed. The gallbladder was placed in a sterile retrieval bag and brought out through the epigastric trocar site. The abdomen was then desufflated and the skin closed with Monocryl. Opening of the gallbladder on the back table did reveal multiple kale small stones and normal-appearing bile. MMODAL /[id number]
[2019-02-21 14:22] VITALS: BP 105/60
== END 2019-02-21 15:00 | disposition home or self-care (01) ==
LOC: JD.SDS 08:15
PROVIDERS: ATTEND Surgery
DX: O99.63 Diseases of the digestive system complicating the puerperium (principal); K80.10 Calculus of gallbladder with chronic cholecystitis without obstruction; K21.9 Gastro-esophageal reflux disease without esophagitis; J45.990 Exercise induced bronchospasm; Z87.891 Personal history of nicotine dependence; Z79.899 Other long term (current) drug therapy
CPT/HCPCS: 00790; 81025; A9270-GY; J0690; J1885; J2001; J2250; J2405; J2704; J2710; J3010; J7120

== ENCOUNTER 2022-02-08 10:51 | Inpatient (IN) | payer OTHER ==
[~2022-02-08 10:51] MED LIST changes: +Bupivacaine 0.25% 10 ML SDV ONE; -Lactated Ringers 1,000 ML IV SCH; -Lidocaine 1%/Sod Bicarbonate in NS 8.4% 1 ML Syringe IDERM PRN; +Phenylephrine/Normal Saline 100 MCG/ML 10 ML Syringe ONE; -Sodium Chloride 0.9% 10 ML Syringe FLUSH PRN
[2022-02-08] MEDS ORDERED: Nalbuphine 10 MG/1 ML Vial IVPUSH PRN (11:54)
[2022-02-08] MEDS ORDERED: Sodium Chloride 0.9% 10 ML Syringe FLUSH PRN (11:54)
[2022-02-08] MEDS ORDERED: Oxytocin/Lactated Ringers 10 UNIT/1,000 ML BAG IV SCH ×2 (12:00)
[2022-02-08] MEDS ORDERED: Bupivacaine/fentaNYL/NS 100 ML Bag EPIDUR PRN (12:12)
[2022-02-08] MEDS ORDERED: fentaNYL 100 MCG/2 ML SDV EPIDUR PRN (12:12)
[2022-02-08] MEDS ORDERED: ePHEDrine 50 MG/ML SDV IVPUSH PRN (12:12)
[2022-02-08] MEDS ORDERED: diphenhydrAMINE 50 MG/ML SDV IVPUSH PRN (12:12)
[2022-02-08] MEDS: Lactated Ringers 1,000 ML IV SCH ×3 (12:40→16:09)
[2022-02-08] MEDS ORDERED: Oxytocin/Lactated Ringers 20 UNIT/1,000 ML BAG ONE (19:06)
[2022-02-09] MEDS ORDERED: Ibuprofen 600 MG Tab PO PRN (01:57)
[2022-02-10] MEDS: Sodium Chloride 0.9% 10 ML Syringe FLUSH SCH ×3 (04:53→11:23)
[2022-02-10 11:10] VITALS: PULSE 86
[2022-02-10 15:07] VITALS: BP 125/84
== END 2022-02-10 14:30 | disposition home or self-care (01) | DRG 807 ==
LOC: JD.OBCHECK 10:51 → JD.OB 10:58 → JD.OBCHECK 12:57 → OBSVTOIN 19:41 → JD.OB 19:42
PROVIDERS: ADMIT Obstetrics & Gynecology; ATTEND Obstetrics & Gynecology
PROC: 10E0XZZ Delivery of Products of Conception, External Approach (ICD-10-PCS; principal; 2022-02-09)
PROC: 0KQM0ZZ Repair Perineum Muscle, Open Approach (ICD-10-PCS; 2022-02-09)
PROC: 3E0R3BZ Introduction of Anesthetic Agent into Spinal Canal, Percutaneous Approach (ICD-10-PCS; 2022-02-09)
PROC: 10907ZC Drainage of Amniotic Fluid, Therapeutic from Products of Conception, Via Natural or Artificial Opening (ICD-10-PCS; 2022-02-09)
DX: O30.043 Twin pregnancy, dichorionic/diamniotic, third trimester (principal); Z37.2 Twins, both liveborn; Z3A.37 37 weeks gestation of pregnancy; O70.1 Second degree perineal laceration during delivery; O32.1XX0 Maternal care for breech presentation, not applicable or unspecified
CPT/HCPCS: 36415; 51702; 59025; 59409; 85025; 85461; 86592; J2370; J2590; J2790; J3010; J3490; J7120

== ENCOUNTER 2022-02-10 22:39 | Emergency (ER) | payer OTHER ==
[2022-02-10 23:06] VITALS: BP 121/90; PULSE 77
== END 2022-02-10 23:39 | disposition home or self-care (01) ==
LOC: JD.ED 22:39
DX: O72.1 Other immediate postpartum hemorrhage (principal); Z86.16 Personal history of COVID-19; Z90.49 Acquired absence of other specified parts of digestive tract; Z79.899 Other long term (current) drug therapy; Z87.891 Personal history of nicotine dependence
CPT/HCPCS: 99283